=== PATIENT | female | born 1995 | race Caucasian/White ===

== ENCOUNTER → 2018-05-04 22:26 | Emergency (ER) | payer OTHER ==
[~2018-05-04 22:26] MED LIST: Azithromycin TAB* 250 MG PO ONE; Levonorgestrel 1.5 MG TAB PO ONE; Lidocaine 2% PF * 5 ML VIAL ONE; cefTRIAXone VIAL(*) 250 MG VIAL IM ONE
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
[2018-05-05 02:13] VITALS: BP 118/74
== END | disposition home or self-care (01) ==
LOC: ED 22:26
DX: T76.21XA Adult sexual abuse, suspected, initial encounter (principal)
CPT/HCPCS: 96372; 99284; A9270-GY; J0696